=== PATIENT | female | born 1995 | race Caucasian/White ===

== ENCOUNTER 2023-05-03 10:30 | Outpatient (CLI) | payer OTHER, SELFPAY | END 2023-05-03 10:31 | disposition home or self-care (01) | LOC: NFLDREF 05-06 20:17 | PROVIDERS: Visit Provider Obstetrics & Gynecology | DX: Z34.91 Encounter for supervision of normal pregnancy, unspecified, first trimester (principal) | CPT/HCPCS: 86592 ==

== ENCOUNTER 2023-05-09 07:45 | Outpatient (CLI) | payer OTHER, SELFPAY | END 2023-05-09 07:46 | disposition home or self-care (01) | LOC: NFLDREF 09:37 | PROVIDERS: Visit Provider Obstetrics & Gynecology | DX: O99.810 Abnormal glucose complicating pregnancy (principal) | CPT/HCPCS: 82951; 82952; 86787 ==

== ENCOUNTER 2023-05-31 09:04 | Outpatient (CLI) | payer OTHER, SELFPAY ==
--- NOTE | 2023-05-31 09:15 | CRLHL7_ITS ---
For Patients: As a result of the Century Cures Act, medical imaging exams and procedure reports are released immediately into your electronic medical record. You may view this report before your referring provider. If you have questions, please contact your health care provider. INDICATION: 27 year-old female. Gestational diabetes mellitus. Follow-up growth. TECHNIQUE: Transabdominal obstetrical ultrasound. FINDINGS: Single living intrauterine in vertex presentation. Anterior placenta. The cervix is not well seen. heart rate 140 beats per minute. Normal amniotic fluid volume. Single deepest pocket measurement 4.3 cm. Biparietal diameter 8.4 cm, 33 weeks 5 days, 84th percentile. Head circumference 30.3 cm, 33 weeks 4 days, 53rd percentile. Abdominal circumference 28.3 cm, 32 weeks 2 days, 55th percentile. Femur length 6.4 cm, 33 weeks 0 days, 60th percentile. Composite calculated ultrasound age 33 weeks 1 day with a sonographic due date of July 18, 2023. Estimated weight 2048 g which lies at the 60th percentile. The head to abdominal circumference ratio is normal at 1.07 (0.96-1.11). Femur length to abdominal circumference ratio is normal at 22.5 (20.0-24.0). IMPRESSION: 1. Single living intrauterine in vertex presentation. 2. Composite calculated ultrasound age 33 weeks 1 day. 3. Estimated weight lies at the 60th percentile. Dictated by Dale Levin MD @ 05/31/2023 9:54:04 AM (Electronically Signed)
== END 2023-05-31 09:05 | disposition home or self-care (01) ==
LOC: US 09:04
PROVIDERS: Visit Provider Advanced Practice Midwife
DX: O24.419 Gestational diabetes mellitus in pregnancy, unspecified control (principal); Z3A.33 33 weeks gestation of pregnancy
CPT/HCPCS: 76816

== ENCOUNTER 2023-06-27 12:55 | Outpatient (CLI) | payer OTHER, SELFPAY ==
--- NOTE | 2023-06-27 13:00 | CRLHL7_ITS ---
For Patients: As a result of the Century Cures Act, medical imaging exams and procedure reports are released immediately into your electronic medical record. You may view this report before your referring provider. If you have questions, please contact your health care provider. INDICATION: Gestational diabetes. Check growth. TECHNIQUE: Limited transabdominal two-dimensional armstrong-scale ultrasound examination. COMPARISON: None FINDINGS: There is a living fetus in vertex lie with gestational age of 36 weeks by LMP and 36 weeks 4 days by today`s measurements. EDC based on LMP is 07/25/2023. BPD: 9.3 cm, 37 weeks 4 days Head circumference: 33.7 cm, 38 weeks 4 days Abdominal circumference: 32.0 cm, 36 weeks Femur length: 6.6 cm, 34 weeks 1 day The weight is estimated at 2803 grams, the 49th percentile. The heart rate is measured at 126 beats per minute and the rhythm appears regular. The amniotic fluid volume is within normal limits with single deepest pocket of 7.4 cm. The placenta is anterior and superior to the cervical os. There is no evidence of previa. IMPRESSION: 1. Living fetus in vertex lie with gestational age of 36 weeks by LMP and 36 weeks 4 days by today`s measurements. EDC based on LMP is 07/25/2023. 2. weight estimated at 2803 grams, at the 49th percentile. Dictated by Luis F Suarez MD @ 06/28/2023 6:54:43 AM (Electronically Signed)
== END 2023-06-27 12:56 | disposition home or self-care (01) ==
LOC: US 12:57
PROVIDERS: Visit Provider Advanced Practice Midwife
DX: O24.419 Gestational diabetes mellitus in pregnancy, unspecified control (principal); Z3A.36 36 weeks gestation of pregnancy
CPT/HCPCS: 76816; 87081; 87653

== ENCOUNTER 2023-07-21 09:45 | Inpatient (IN) | payer OTHER, SELFPAY ==
[2023-07-21] VITALS (32 sets, daily range): BP systolic 104–148; BP diastolic 54–89; PULSE 62–100; RESP 16–18; TEMP 36.6–36.9; BMI 31.8
--- NOTE | 2023-07-21 11:45 | P.LDBA_ITS ---
Subjective History of Present Illness Date Seen: 07/21/23 Narrative: Patient is being admitted to Labor and Delivery for SROM with clear fluid at 0738 today. She is a 28 year old at 39.3weeks gestation. Her full history and physical was dictated by Enrique Hicks CNM on 07/04/23. Please see this for details. Specific Issues/Plans Transfer at 25 weeks IOL scheduled 07/25/23 H & P done 07/04 by Randee 1. History of , IOL for suspected macrosomia, bradycardia, desires * Operative report: Reviewed, low transverse hysterotomy incision with 2 layer closure confirmed. * MD consult: 05/03/2023. calculator: 69.8% chance of successful TOLAC. * consent: 06/27 with Viridiana * Growth US 36 weeks: ordered 2. History of urinary reflux taking ASA 81 mg 3. Elevated blood pressures at 19 weeks. Baseline Pre E labs: normal per patient 4. Varicella nonimmune Vaccination 5. GDM failed 1 hr and 3 hr, has seen nutrition Growth US Q4 weeks 32 weeks-EFW 60% 36 weeks- EFW 49% consider US at 40wks if postponing IOL Recommend delivery between 39.0-40.6 weeks 30 week 01/07 out of range 25% all fasting just started 1 week ago 32wks: all but 3 fasting elevated, all other normal, will see Septemberwks: all number normal 6. GBS positive recommended antibiotics in labor labs 12/01/2022: O positive, negative antibody screen, hemoglobin 14.1, platelets 260, rubella immune, hepatitis B surface antigen negative, hep C antibody negative, gonorrhea and Chlamydia negative, HIV neg, RPR neg, UC > 100,000 mixed ivett- treated UTI 02/08/2023 AFP: Negative Pap 09/27/2022: NIL Imagin. 12/08/2022: [place]-rump length 11.3 mm, heart rate 141, ABBY 07/25/2023 2. 03/01/2023: Anterior placenta, no previa. Normal anatomy, however suboptimal views for profile, lip/nose, and cardiac views. EFW 72nd percentile 3. 03/15/2023: Anterior placenta, no previa. Profile/lip/nose, cardiac views seen. Normal. EFW 93rd percentile [employer] Breastpump RX faxed 05/17/2023 - Patient would like [employer] Stride Plus Double Electric Pump - Copy sent to scanning Flu shot: 03/15/23 Covid Booster: 03/17/2023 RSV: 06/14/2022 Tdap: 32 wk PHQ/JAKE: 34 wk Hgb: 13.1 H&P: OB - Problem Based A/P Additional Plan (1) Spontaneous rupture of membranes: Status: Acute (2) 38 weeks gestation of : Status: Acute (3) History of section complicating : Status: Acute (4) Gestational diabetes: Status: Acute (5) Encounter for trial of labor: Status: Acute Plan Assessment:?? at 39.3 weeks gestation?? GBS positive? Patient is coping well with challenges of labor.?? Labor type: Spontaneous rupture of membranes without onset of contractions at this time? Category 1 FHR pattern.? complicated by: 1. History of , IOL for suspected macrosomia, bradycardia, desires * Operative report: Reviewed, low transverse hysterotomy incision with 2 layer closure confirmed. * consult: 05/03/2023. calculator: 69.8% chance of successful TOLAC. * consent: 06/27 with Viridiana * Growth US 36 weeks: ordered 2. History of urinary reflux taking ASA 81 mg 3. Elevated blood pressures at 19 weeks. Baseline Pre E labs: normal per patient 4. Varicella nonimmune Vaccination 5. GDM failed 1 hr and 3 hr, has seen nutrition Growth US Q4 weeks 32 weeks-EFW 60% 36 weeks- EFW 49% consider US at 40wks if postponing IOL Recommend delivery between 39.0-40.6 weeks 30 week 01/07 out of range 25% all fasting just started 1 week ago 32wks: all but 3 fasting elevated, all other normal, will see Septemberwks: all number normal 6. GBS positive recommended antibiotics in labor Plan:?? * ?Admit to L & D? * IV access: yes for TOLAC and GBS antibiotics * Monitoring per policy: continuous ? * Candidate for analgesia of choice.? Undecided for pain management * Expectant management at this time, will reevaluate labor status this afternoon * GBS prophylaxis initiated for GBS positive status. Will treat with antibiotics per protocol.? * Patient encouraged to reposition and ambulate to promote physiologic labor and . * Anticipate ? Delivery/Labor/Induction Plan Plan: expectant management OB Exam Physical Exam Vital signs: VSS, afebrile? General Appearance:? Calm, cooperative.? No acute distress.? Normal affect.? Psychiatric Exam: Alert and oriented, appropriate affect? HEENT: normocephalic, neck supple, full ROM? Respiratory:? Symmetrical chest wall movement.? Normal respiratory effort.? Clear to auscultation? Cardiac:? regular rate and rhythm? Abdomen: Gravid, non tender? Extremities:? normal and trace edema? Skin: warm, dry.??? Ctx:?no contractions at this time FHTs:? Baseline: 125.? Variability: minimal on admit now moderate.?? Accels: +.??? Decels:? -.? SVE: deferred with SROM and no contractions? Membranes: ? SROM,? clear fluid, X 4 hours? Detailed Labor and Delivery Exam Patient Gravid: Yes
[2023-07-21] MEDS: AMPICILLIN 2 GM in 0.9 % SODIUM CHLORIDE Mini-bag 100 ML IVPB (11:52)
[2023-07-21] MEDS: LACTATED RINGERS 1000 ML 1,000 ML 500 ML IV (11:56)
[2023-07-21 12:01] LABS: Basophils Percent Auto 0.3 % (0.0-3.0); Eosinophils Percent Auto 2.7 % (0.0-7.0); Hematocrit 37.9 % (33.0-51.0); Hemoglobin* 12.5 gm/dL (12.0-16.0); Immature Granulocytes Pct Auto 0.3 %; Lymphocytes Percent Auto 17.7 % (20-44); Mean Corpuscular HGB Conc 33 gm/dL (32-36); Mean Corpuscular Hemoglobin 27 pg (26-34); Mean Corpuscular Volume 83 fL (80-100); Monocytes Percent Auto 7.3 % (0.0-11.0); Neutrophils Percent Auto 71.7 % (42.0-72.0); Platelet Count* 184 K/uL (140-440); RDW Coefficient of Variation % 14.1 % (11.5-15.5); Red Blood Count 4.58 m/uL (4.00-5.20); White Blood Count* 11.62 K/uL (4.50-11.00)
[2023-07-21 12:21] LABS: Slide Review Reflex No
--- NOTE | 2023-07-21 16:03 | P.OBPN_ITS ---
Subjective Time Seen by Provider: 14:30 Date Seen: 07/21/23 Narrative: ?Briana is coping well with labor pain/contractions, she is not aware of most of her contractions at this time. ?Bang is with her for support. She has been up and walking in the halls and her room. Continues to leak fluid.? Objective Exam: VSS, afebrile General Appearance:? Calm, cooperative. ?No acute distress. ? Psychiatric Exam: Alert and oriented, appropriate affect Abdomen: Gravid Ctx: ?Q 2-5 min apart. ?Mild ? ? FHTs: ?Baseline: 130. ? ? Variability: moderate. ?Accels: +. ? ?Decels: ?-. SVE: deferred at this time Membranes: ?SROM ?AROM X 7 hours Vital Signs: Last Vital Signs Temp 98.5 F 07/21/23 14:38 Pulse 80 07/21/23 14:38 Resp 18 07/21/23 14:38 BP 125/72 07/21/23 14:38 Plan Plan: Assessment:?? at 39.3 gestation?? GBS + Patient is coping with challenges of labor.?? Labor type: SROM without onset of painful contractions, Early labor? Category 1 FHR pattern.? complicated by: 1. History of , IOL for suspected macrosomia, bradycardia, desires * Operative report: Reviewed, low transverse hysterotomy incision with 2 layer closure confirmed. * consult: 05/03/2023. calculator: 69.8% chance of successful TOLAC. * consent: 06/27 with Viridiana * Growth US 36 weeks: ordered 2. History of urinary reflux taking ASA 81 mg 3. Elevated blood pressures at 19 weeks. Baseline Pre E labs: normal per patient 4. Varicella nonimmune Vaccination 5. GDM failed 1 hr and 3 hr, has seen nutrition Growth US Q4 weeks 32 weeks-EFW 60% 36 weeks- EFW 49% consider US at 40wks if postponing IOL Recommend delivery between 39.0-40.6 weeks 30 week 01/07 out of range 25% all fasting just started 1 week ago 32wks: all but 3 fasting elevated, all other normal, will see Septemberwks: all number normal 6. GBS positive recommended antibiotics in labor Labor complicated by: SROM without onset of labor? Plan:?? Continuous monitoring Antibiotic prophylaxis treatment per protocol Continue with routine intrapartum cares as ordered.?? Patient encouraged to move and change positions to promote physiologic labor and .?? Nonpharmacologic comfort measures per patient preference. Candidate for analgesia of choice if desired. Anticipate progress to NVD. ?
[2023-07-21] MEDS: AMPICILLIN 1 GM in 0.9 % SODIUM CHLORIDE Mini-bag 100 ML IVPB ×2 (16:06→20:02)
[2023-07-21] MEDS: OXYTOCIN 30 unit/500 ML in NS 30 UNIT/500 ML BAG IVPB (16:33)
--- NOTE | 2023-07-21 16:54 | P.OBPN_ITS ---
Subjective Date Seen: 07/21/23 Narrative: ?Briana continues to not feel her contractions and is leaking clear fluid. ?Bang is with her for support. ?She would like to continue with repositioning and relaxation for comfort and pain management.?Discussed continuing to wait for labor to start vs attempting augmentation with nipple stimulation vs starting IV Pitocin. R/B/A reviewed and patient would like to move forward with IV Pitocin augmentation. Questions answered and both patient and her partner are in agree ment of the plan. Objective Exam: General Appearance:? Calm, cooperative. ?No acute distress. ? Psychiatric Exam: Alert and oriented, appropriate affect Abdomen: Gravid Ctx: ?Q 5-6 min apart. ?Mild ? ? FHTs: ?Baseline: 120. ? ? Variability: moderate. ?Accels: +. ? ?Decels: ?-. SVE: /-3 Membranes: ?SROM clear ?AROM X 9 hours Vital Signs: Last Vital Signs Temp 98.5 F 07/21/23 14:38 Pulse 80 07/21/23 14:38 Resp 18 07/21/23 14:38 BP 125/72 07/21/23 14:38 Plan Plan: Assessment:?? at 39.3 gestation?? GBS + Patient is coping with challenges of labor.?? Labor type: Augmented, Early labor? Category 1 FHR pattern.? complicated by: 1. History of , IOL for suspected macrosomia, bradycardia, desires * Operative report: Reviewed, low transverse hysterotomy incision with 2 layer closure confirmed. * consult: 05/03/2023. calculator: 69.8% chance of successful JON AC. * consent: 06/27 with Viridiana * Growth US 36 weeks: ordered2. History of urinary reflux taking ASA 81 mg 3. Elevated blood pressures at 19 weeks. Baseline Pre E labs: normal per patient 4. Varicella nonimmune Vaccination 5. GDM failed 1 hr and 3 hr, has seen nutrition Growth US Q4 weeks 32 weeks-EFW 60% 36 weeks- EFW 49% consider US at 40wks if postponing IOL Recommend delivery between 39.0-40.6 weeks 30 week 01/07 out of range 25% all fasting just started 1 week ago 32wks: all but 3 fasting elevated, all other normal, will see Septemberwks: all number normal 6. GBS positive recommended antibiotics in labor Labor complicated by: SROM without onset of labor, TOLAC? Plan:?? Augmentation with IV Pitocin per protocol Antibiotic prophylaxis treatment per protocol Continue with routine intrapartum cares as ordered.?? Patient encouraged to move and change positions to promote physiologic labor and .?? Nonpharmacologic comfort measures per patient preference. Candidate for analgesia of choice if desired. Anticipate progress to NVD. ?
[2023-07-21] MEDS: LACTATED RINGERS 1000 ML 1,000 ML 125 ML IV (20:09)
[2023-07-21] MEDS: LACTATED RINGERS 1000 ML 1,000 ML 1125 ML IV (22:18)
[2023-07-21] MEDS: LIDOCAINE 2% (PF) 5 ML VIAL EPIDURAL (22:31)
[2023-07-21] MEDS: ROPIVACAINE 0.2 % PF 10 ML INJ 20 MG EPIDURAL (22:36)
[2023-07-21] MEDS: ROPIVACAINE 0.2% 100 ml 100 ML 12 MG EPIDURAL (22:41)
--- NOTE | 2023-07-21 22:44 | P.ANBPRC_ITS ---
[facility] Medical History History of urinary reflux ?Z87.448 - Personal history of other diseases of urinary system (ICD-10) Depression ?F32.A - Depression, unspecified (ICD-10) Asthma ?J45.909 - Unspecified asthma, uncomplicated (ICD-10) Anxiety ?F41.9 - Anxiety disorder, unspecified (ICD-10) History of abnormal cervical Pap smear ?Z87.42 - Personal history of other diseases of the female genital tract (ICD-10) Gonorrhea ?A54.9 - Gonococcal infection, unspecified (ICD-10) Surgical History History of tonsillectomy ?Z90.89 - Acquired absence of other organs (ICD-10) History of (08/29/20) ?Z98.891 - History of uterine scar from previous surgery (ICD-10) Family History Maternal Grandmother Breast cancer Mother Diabetes Maternal Grandfather High blood pressure Social History Narrative: History of blood transfusion: no. SOCIAL HISTORY: Occupation: [id number] mom. Marital status: . Mormonism/cultural needs: no. Chemical or radiation exposure: no. Pre- tobacco use: no. Pre- alcohol use: Less than 1 per day. Current tobacco use: no. Current alcohol use: no. Recreational drug use: no. Dietary restrictions: no. Blood transfusion acceptable in an emergency: yes. PSYCHOSOCIAL HISTORY: History of depression or currently depressed: History of depression in high school, nothing since. Current or past physical, emotional, or sexual mistreatment: Denies. Problems that will make it hard to make it to appointme nts: Denies. What is your current living situation?: I presently have a place to live Problems where you live: no known problems In the past 12 months, utilities in danger of being shut off: declined to answer In past 12 months, lack of transportation kept you from medical appts, meetings, work, or getting things needed for daily living: no In the past 12 mos, have been you worried that your food would run out before you had money to buy more?: never true In the past 12 mos, the food you bought just didn't last and you didn't have money to buy more?: never true Smoking Status: Never smoker How often does anyone, including family, friends and others, physically hurt you : never How often does anyone, including family, friends and others, insult or talk down to you: never How often does anyone, including family, friends and others, threaten you with harm: never How often does anyone, including family, friends and others, scream or curse at you: never Little interest or pleasure in doing things: not at all Feeling down, depressed, or hopeless: several days Meds Home Medications and Allergies Home Medications Medication Instructions Recorded Confirmed Type aspirin 81 mg tablet,delayed 81 mg PO QDAY 04/12/23 07/21/23 History release (Adult Low Dose Aspirin) docosahexaenoic acid 200 mg mg PO 04/12/23 07/18/23 History capsule ( DHA) ubidecarenone-omega 3-vit E 25 1 cap PO ONCE 04/12/23 07/21/23 History mg-150 (90-60) mg-200 unit capsule (Co F-85-Shkehbz E-Fish Oil) Allergies Allergy/AdvReac Type Severity Reaction Status Date / Time avocado AdvReac Severe Gastrointestinal Verified 07/18/23 11:27 Upset scallops AdvReac Severe Gastrointestinal Verified 07/18/23 11:27 Upset oysters AdvReac Severe Gastrointestinal Uncoded 07/18/23 11:27 Upset Results Labs Labs: Laboratory Results - last 24 hr 07/21/23 11:39 WBC 11.62 H RBC 4.58 Hgb 12.5 Hct 37.9 MCV 83 MCH 27 MCHC 33 RDW Coeff of Guilherme 14.1 Plt Count 184 Neut % (Auto) 71.7 Lymph % (Auto) 17.7 L [place] % (Auto) 7.3 Eos % (Auto) 2.7 Baso % (Auto) 0.3 Neut # (Auto) 8.30 H Lymph # (Auto) 2.10 [place] # (Auto) 0.80 Eos # (Auto) 0.30 Baso # (Auto) 0.00 Abs Immat Gran (auto) 0.00 Imm/Tot Granulo (auto) 0.3 Blood Type O Positive Antibody Screen NEGATIVE Vital Signs Vital Signs: Last Vital Signs Temp 98 F 07/21/23 21:26 Pulse 72 07/21/23 22:43 Resp 18 07/21/23 19:35 BP 122/74 07/21/23 22:43 Weight: 89.358 kg Height: 167.64 cm Anesthesia Procedures Epidural Insertion Patient Location: OB Start Time: 22:10 Stop Time: 22:44 Start Date: 07/21/23 Stop Date: 07/21/23 Reason for Block: procedure for pain Patient Position: sitting Performed By: Dong Solorio Preanesthetic Checklist: IV checked, risks and benefits discussed, surgical consent, monitors and equipment checked, pre-op evaluation, timeout performed and anesthesia consent Prep: chlorhexidine gluconate Monitoring: blood pressure monitoring, continuous pulse oximetry and heart rate Approach: midline Vertebral Space: lumbar (1-5) Needle Type: Tuohy needle Injection Technique: continuous catheter Needle gauge: 17 Needle Length (cm): 10 cm Needle Insertion Depth (cm): 7 Catheter Gauge: 19 Catheter Type: multi-orifice Catheter at skin depth (cm): 13 Test Dose Result: negative and lidocaine 1.5% with epinephrine 1 to 200,000
[2023-07-21] MEDS: PHENYLEPHRINE 100 MCG/ML SYRINGE IVP (22:53)
[2023-07-21] MEDS: ePHEDrine sulfate 5 MG/ML inj 10 MG IVP (22:57)
--- NOTE | 2023-07-21 23:23 | P.OBPN_ITS ---
Subjective Date Seen: 07/21/23 Narrative: ?Briana is coping well with labor pain/contractions, she recently had an epidural placed for pain management and states she is comfortable with contractions. ?Bang is with her for support. ?Cervical exam after epidural placement is 5/100/-1 continues to leak clear fluid. Objective Exam: VSS, afebrile General Appearance:? Calm, cooperative. ?No acute distress. ? Psychiatric Exam: Alert and oriented, appropriate affect Abdomen: Gravid Ctx: ?Q 2-3 min apart. ? ? ?Strong FHTs: ?Baseline: 150. ? ? Variability: moderate. ?Accels: - . ? ?Decels: ?variables with contractions noted to 90's, continues after position change but now dropping to 120's at adrian. SVE: 5/100/-1 Membranes: ?SROM clear?X 16 hours Vital Signs: Last Vital Signs Temp 98 F 07/21/23 21:26 Pulse 85 07/21/23 23:17 Resp 18 07/21/23 19:35 BP 127/77 07/21/23 23:17 Contractions Monitor mode: External (Novii) Contraction Frequency: 2-3 Contraction pattern: Regular Contraction intensity: Strong/Firm Pitocin Rate (mU/min): 4 Assessment Assessment: active labor Station: -1 Amniotic Membrane Status: SROM Status: Category ll Heart Rate Baseline: 150 [employer] Variability: Moderate (6-25) Monitor Accelerations: Absent Monitor Decelerations: Variable Plan Plan: Assessment:?? at 39.3 gestation?? GBS + Patient is coping well with challenges of labor.?? Labor type: Augmented, Active labor? Category 2 FHR pattern.? complicated by: 1. History of , IOL for suspected macrosomia, bradycardia, desires * Operative report: Reviewed, low transverse hysterotomy incision with 2 layer closure confirmed. * consult: 05/03/2023. calculator: 69.8% chance of successful TOLAC. * consent: 06/27 with Viridiana * Growth US 36 weeks: ordered2. History of urinary refluxtaking ASA 81 mg 3. Elevated blood pressures at 19 weeks. Baseline Pre E labs: normal per patient 4. Varicella nonimmune Vaccination 5. GDM failed 1 hr and 3 hr, has seen nutrition Growth US Q4 weeks 32 weeks-EFW 60% 36 weeks- EFW 49% consider US at 40wks if postponing IOL Recommend delivery between 39.0-40.6 weeks 30 week 01/07 out of range 25% all fasting just started 1 week ago 32wks: all but 3 fasting elevated, all other normal, will see Septemberwks: all number normal 6. GBS positive recommended antibiotics in labor Labor complicated by: SROM for 16 hours, TOLAC? Plan:?? Continue with IV Pitocin per protocol Antibiotic prophylaxis treatment per protocol Continue with routine intrapartum cares as ordered.?? Patient encouraged to move and change positions to promote physiologic labor and .?? Epidural in place for pain management OB and Surgical team notified of progress, team is on their way to be in house for TOLAC Anticipate progress to NVD. ?
--- NOTE | 2023-07-21 23:43 | PM.OBPNL ---
Subjective Date Seen: 07/21/23 Narrative: Called to room for increase in bloody show. Patient is now 8cm, anticipate progression to second stage soon. Objective Vital Signs: Last Vital Signs Temp 98 F 07/21/23 21:26 Pulse 88 07/21/23 23:39 Resp 18 07/21/23 19:35 BP 145/63 H 07/21/23 23:39 Contractions Monitor mode: External (Novii) Contraction pattern: Regular Contraction intensity: Strong/Firm Pitocin Rate (mU/min): 4 Assessment Station: -1 Amniotic Membrane Status: SROM Status: Category ll Heart Rate Baseline: 150 Monitor Accelerations: Absent Monitor Decelerations: Variable
[2023-07-22] VITALS (36 sets, daily range): BP systolic 93–134; BP diastolic 55–81; PULSE 69–104; RESP 15–18; TEMP 36.4–37.3; O2SAT 96–97
[2023-07-22] MEDS: LACTATED RINGERS 1000 ML 1,000 ML 125 ML IV (00:06)
[2023-07-22] MEDS: AMPICILLIN 1 GM in 0.9 % SODIUM CHLORIDE Mini-bag 100 ML IVPB (00:11)
--- NOTE | 2023-07-22 00:39 | P.OBPN_ITS ---
Subjective Time Seen by Provider: 01:00 Date Seen: 07/22/23 Narrative: ?Briana is comfortable with her epidural, she is not feeling any pressure or contractions at this time. She has had a moderate amount of bright red bloody show since progressing to 8 cm rapidly. Objective Exam: VSS, afebrile General Appearance:? Calm, cooperative. ?No acute distress. ? Psychiatric Exam: Alert and oriented, appropriate affect Abdomen: Gravid Ctx: ?Q 2-3 min apart. ? ? ?Strong FHTs: ?Baseline: 150. ? ? Variability: moderate. ?Accels: -. ? ?Decels: ?recurrent variables and occasional lates. SVE: 8/100/0 Membranes: ?SROM ? Vital Signs: Last Vital Signs Temp 98.3 F 07/21/23 23:29 Pulse 89 07/22/23 00:39 Resp 18 07/21/23 19:35 BP 112/60 07/22/23 00:39 Contractions Monitor mode: External (Novii) Contraction pattern: Regular Contraction intensity: Strong/Firm Pitocin Rate (mU/min): 0 Assessment Assessment: active labor Station: 0 Amniotic Membrane Status: SROM Status: Category ll Heart Rate Baseline: 150 Long-Term Variability: Moderate (6-25) Monitor Accelerations: Present Monitor Decelerations: Variable Tracing Comments: Variables to 80-90's with most contractions, some improvement for short period, approximately 3-5 contractions with position change but variables continue to return. Rare late decel noted. Plan Plan: Assessment:?? at 39.3 gestation?? GBS + Patient is coping well with challenges of labor.?? Labor type: Augmented, Active labor? Category 2 FHR pattern.? Plan:?? Anticipate second stage soon. Continue with position changes for Variable decelerations. Consult Dr. Debbie Bhatia to review strip. Antibiotic prophylaxis treatment per protocol Continue with routine intrapartum cares as ordered.?? Anticipate progress to NVD. ?
[2023-07-22] MEDS: miSOPROStoL 800 MCG/4 TABLET PR (03:34)
--- NOTE | 2023-07-22 03:55 | W.PM.OBVAGDE ---
OB Procedure Vag Delivery Mother Details Mother Details: The patient is a 28 year-old, 2, Para 2, admitted on 07/21/23 at 39 weeks 3 Days gestation. : 2 Para: 2 Weeks Gestation: 39.3 Admission Date: 07/21/23 Additional Details Amniotic Membrane Status: SROM Amniotic Membrane Rupture Date: 07/21/23 Amniotic Membrane Rupture Time: 07:30 Amniotic Membrane Fluid Description: Clear Analgesia/Anesthesia Type: Epidural Waterbirth: No Pitcoin: Yes Intrapartal Events: Labor Augmentation Delivery augmentation: pitocin Labor Onset: 22:30 Complete: 01:53 Pushin:59 Heart: heart tones during second stage were Category 2, with deep variables to 70-90's, moderate variability throughout pushing phase. At approximately 0238 variables became progressively deeper, good pushing effort with progress observed and pt delivered in the next 14 minutes. Delivery Details Delivery Date: 07/22/23 Delivery Time: 02:52 Route of delivery: Gender: Male Viability: Alive; Heart Rate Present Position at Delivery: OA Delivery Details: Briana is a 28?y.o?at 39.3 weeks.? Briana arrived to birthing with SROM for clear fluid which occurred at 0730, she described a large gush and was continuing to leak large amounts of fluid on arrival. She elected to walk, reposition and wait for labor until approximately 1630 when augmentation of her labor was started with IV Pitocin. She requested an epidural for pain and once comfortable was found to be 5cm dilated. She was compete at 0153 and began pushing effectively. During pushing there were deep variables in FHR and Dr. Martinez was consulted and came to the bedside. Briana was turned to hands and knees and variables improved, she pushed in this position effectively until a deceleration with pushing to the 30's prompted Dr. Martinez to begin preparing for a vacuum delivery. Briana was turned back to low-fowlers position with legs up in stirrups in preparation for vacuum and then continued to push. With the next push she began to move baby well and shortly thereafter was . Infant delivered soon after with no need for vacuum use. ? She became complete at 0153.??She pushed in hands and knees, left tilt and low fowlers positions effectively.? Spontaneous vaginal delivery at 0252 of?a viable?male .??Delivered in vertex OA position, there was a nuchal cord that was not reducible, was somersaulted through and cord was reduced after delivery. ??Shoulders delivered easily.? Spontaneous cry noted.?? placed on maternal abdomen.??Cord?was clamped and cut after a 5+ minute delay.??Nose and mouth were bulb suctioned.? Shoulder dystocia: no? Nuchal cord: yes times one, delivered through? Meconium stained?fluid: no? Water : no? ? ? 8 at 1 minute and 8 at 5 minutes.? ? Placenta delivered spontaneously and?complete?at 0301 with a?3 vessel?cord.?? Bleeding controlled with fundal massage and?pitocin?for AMTSL.?During repair noted continued oozing despite firm fundus, Discussed Cytotec use with patient and she was agreeable. Bleeding had slowed when repair was completed. ? Mother and were stable after delivery.? ? Lacerations:? bilateral periurethral tears, repaired with 3-0?vicryl, with 1% lidocaine injection at sites for pain relief. ??1st laceration, not bleeding, not repaired? ? Bleeding?post delivery?was: moderate . ?The fundus was firm to palpation.? Blood loss: 600?mL.? Blood loss measurement type: QBL? ? ? Sponge,?lap?and needles counts are correct.? Mother and were stable after delivery.? 1 Minute Interval Total Score: 8 5 Minute Interval Total Score: 8 Additional Details Shoulder Dystocia: No Placenta Delivery Time: 03:01 Placental Delivery Description: Spontaneous Delivery repair: Vicryl Procedure Done: Global Blood Loss: 600 Laceration: Periurethral - 1st Degree (bilateral repaired, perineal 1st degree not bleeding and not repaired) Blood Loss Measurement Type: QBL Bakri Used: No Sponge/Need Count Correct: Yes Cord Vessel Description: 3 Vessels, Nuchal Cord, Tight and Delivered through Event Summary Status: Mother and infant were stable after delivery. Disposition: floor
[2023-07-22] MEDS: ACETAMINOPHEN 500 MG TABLET 1000 MG PO ×3 (03:56→16:55)
[2023-07-22] MEDS: IBUPROFEN 600 MG TABLET PO ×3 (05:29→19:19)
--- NOTE | 2023-07-22 10:14 | PM.ANPOST ---
Post Anesthesia Note Post Anesthesia Note Patient seen: Inpatient Respiratory Status: adequate Cardiovascular Status: adequate Mental Status: baseline Pain: adequate Temp: baseline Anesthetic awareness: N/A Complications: none Follow care: none
[2023-07-22] MEDS: DOCUSATE SODIUM 100 MG CAPSULE PO (10:37)
[2023-07-23 00:05] VITALS: BP 106/67; PULSE 87; RESP 15; TEMP 36.3; O2SAT 97
[2023-07-23] MEDS: IBUPROFEN 600 MG TABLET PO (03:21)
[2023-07-23 07:48] VITALS: BP 108/72; PULSE 71; RESP 16; TEMP 36.3; O2SAT 97
[2023-07-23] MEDS: ACETAMINOPHEN 500 MG TABLET 1000 MG PO (07:53)
[2023-07-23] MEDS: DOCUSATE SODIUM 100 MG CAPSULE PO (07:53)
--- NOTE | 2023-07-23 08:53 | PM.OBDSVD1 ---
DS: Providers Provider Date Seen: 07/23/23 Date of admission: 07/21/23 09:45 Primary care physician: Not a Local Provider Admitting Clinician: Wally Leavitt CNM Attending Physician on discharge: Gris Miller CNM DS: Diagnosis Discharge Diagnosis (1) care and examination immediately after delivery: Status: Acute (2) Lactating mother: Status: Acute (3) Gestational diabetes: Status: Acute Exam Narrative: Exam Narrative: GENERAL APPEARANCE:? normal affect, alert, no distress MOOD:? appropriate CHEST:? clear to auscultation HEART:? regular rate and rhythm ABDOMEN:? soft, non-tender the uterine fundus is at Umbilicus, Midline and is appropriate for the stage of recovery. PERINEUM:? mild edema of the perineum. EXTREMITIES:? normal and no edema Const: Vital Signs, click to edit/add: Vital Signs - 24 hr 07/22/23 09:10 07/22/23 13:18 07/22/23 16:57 Temperature 97.8 F 97.6 F 98.2 F Pulse Rate [Blood Pressure Cuff] 79 73 73 Respiratory Rate 16 15 15 Blood Pressure [Ri ght Arm] 93/56 L 113/75 103/64 Pulse Oximetry 97 96 97 Oxygen Delivery Me thod Room Air Room Air Room Air 07/22/23 20:59 07/23/23 00:05 07/23/23 07:48 Temperature 97.8 F 97.4 F L 97.4 F L Pulse Rate [Blood Pressure Cuff] 69 87 71 Respiratory Rate 17 15 16 Blood Pressure [Ri ght Arm] 106/78 106/67 108/72 Pulse Oximetry 96 97 97 Oxygen Delivery Me thod Room Air Room Air Room Air OB - DS: Summary Hospital Course Hospital Course: Briana is a 28 y.o. G 2 P 2 who was admitted to [facility] for rupture of membranes. ?She had a that was uncomplicated. The patient feels well. ?The pain is well controlled with current medications. ?She has no new complaints. ?She is breast feeding and reports things are going well. the patient has done well.? Vitals have been stable.? She has remained afebrile.? Has a good appetite, is tolerating a general diet. ?She is voiding without difficulty.? She is passing gas and has not had a bowel movement.? She is ambulating and denies any dizziness.? Has small amount of rubra lochia. Problems: none plan: Discharge home with baby. Follow up in 2 weeks and 6 weeks. , may see if needed Peripartum Data Infant delivery method: Vaginal Laceration description: Periurethral - 1st Degree complications: none Riley Infant Gender: Male Infant Discharge Plan: Home Status at Discharge Functional status at discharge: independent ambulation Overall status at discharge: patient is progressing back to baseline Time Spent with Patient Time attestation: Total time spent providing and/or coordinating discharge services: Discharge Plan Discharge Disposition: Home, Self-Care Date of Admission: 07/21/23 09:45 Attending Provider on Discharge: Gris Miller Primary Care Provider: Provider,Not a Local Condition: Stable Anticipated Discharge Date/Time: 07/23/23 12:00 Discharge Medications: New docusate sodium 100 mg Capsule 100 mg PO DAILY Qty: 90 0RF ibuprofen 600 mg Tablet 600 mg PO Q6H PRNQty: 60 0RF acetaminophen 500 mg Tablet 1,000 mg PO Q6H PRNQty: 0 0RF Continued DHA 200 mg capsule 200 mg PO DAILY Co [id number] E-Fish Oil 25-150-200 mg-mg-unit capsule 1 cap PO ONCE aspirin [Adult Low Dose Aspirin] 81 mg tablet,delayed release (DR/EC) 81 mg PO QDAY Discontinued (DME) Test Strips Misc See Rx Instructions .MEDSUPPLY Qty: 100 3RF Rx Instructions: Test blood sugar 4 times daily. (DME) lancets Misc See Rx Instructions .MEDSUPPLY Qty: 100 3RF Rx Instructions: Test blood sugar 4 times daily. (DME) Blood Glucose Meter Misc See Rx Instructions .MEDSUPPLY Qty: 1 0RF Rx Instructions: As directed Discharge Orders: Discharge Order (Routine); Ordered 07/23/23 Ordered By: Gris Miller Patient Education: OB Over the Counter Medication Information, OB Vaginal/Breast Feeding Additional Instructions: Discharge instructions were reviewed with the patient including signs and symptoms of infection and home going medications Nothing vaginally for 6 weeks: no tampons or intercourse Off Work or School for 6 weeks 2-week visit: discuss feeding concerns, review control options and screen for anxiety/depression. 6-week visit for an annual exam with 2 hour glucose challenge test. consultation services are available to all mothers and babies for the first year after delivery.? To make an appointment, please call [phone]. Activity Level: Activity as Tolerated Discharge Diet: Regular Follow Up Appointments: [facility] [Provider Group] (2 week and 6 week with 2 hour glucose challenge test) Forms: Online Dealer Info Instructions
== END 2023-07-23 11:32 | disposition home or self-care (01) | DRG 807 ==
LOC: OB OUT 09:49 → OB 09:49
PROVIDERS: Admitting Provider Advanced Practice Midwife; Visit Provider Advanced Practice Midwife
DX: O34.211 Maternal care for low transverse scar from previous cesarean delivery (principal); Z37.0 Single live birth; O24.420 Gestational diabetes mellitus in childbirth, diet controlled; Z3A.39 39 weeks gestation of pregnancy; O99.824 Streptococcus B carrier state complicating childbirth; Z78.9 Other specified health status; O70.0 First degree perineal laceration during delivery; O71.82 Other specified trauma to perineum and vulva
CPT/HCPCS: 01967; 36415; 82962; 85025; 86850; 86900; 86901; A9270; J0290; J2371; J2795; J7120

== ENCOUNTER 2023-10-03 08:30 | Outpatient (CLI) | payer OTHER, SELFPAY | END 2023-10-03 08:31 | disposition home or self-care (01) | LOC: NFLDREF 10-05 07:38 | PROVIDERS: Visit Provider Advanced Practice Midwife | DX: Z34.92 Encounter for supervision of normal pregnancy, unspecified, second trimester (principal) | CPT/HCPCS: 82947; 82950 ==